=== PATIENT | female | born 1975 ===

== ENCOUNTER → 2018-03-24 12:32 | Outpatient (CLI) | payer OTHER, SELFPAY ==
--- NOTE | 2018-03-24 | DI.MRI.S_ITS ---
PROCEDURE: MR HEAD/BRAIN WO CON INDICATIONS: Headache TECHNIQUE: Noncontrast axial T1 spin echo, axial T2 fast spin echo, sagittal and axial FLAIR, coronal T2 fast spin echo, axial gradient echo, axial diffusion and ADC through the brain. COMPARISON: None. FINDINGS: Image quality: Excellent. CSF Spaces: Basal cisterns are patent. No extra-axial fluid collections. Ventricles are normal in size and shape. Brain: No intracranial masses or hemorrhage. Rogers/white matter interface is normal. Brainstem appears normal. Diffusion-weighted images demonstrate no acute ischemic insult. No chronic ischemic insults. Normal intravascular flow voids are present. Skull and face: Calvarium has normal marrow signal. Orbits appear normal. Sinuses: Small mucous retention cyst versus polyp noted in the right sphenoid sinus. Mild mucosal thickening noted in the right maxillary sinus. The mastoids are clear. IMPRESSION: 1. No intracranial disease process. 2. No abnormal intracranial mass. 3. No abnormal intracranial signal. 4. Mild right maxillary sinus mucosal thickening and small right sphenoid sinus mucous retention cyst versus polyp. Dictated by: Chayo Saenz MD, PhD on 03/26/2018 at 9:38 Approved by: Chayo Saenz MD, PhD on 03/26/2018 at 9:41
== END ==
PROVIDERS: Visit Provider Family Medicine
DX: R51 Headache (principal); J32.0 Chronic maxillary sinusitis
CPT/HCPCS: 70551

== ENCOUNTER → 2020-06-05 13:07 | Outpatient (CLI) | payer BC, SELFPAY ==
[2020-06-05] MEDS: COVID-19 VACC #1, MRNA(MOD) 100 MCG/0.5 ML VIAL IM (13:21)
== END ==
PROVIDERS: Visit Provider Internal Medicine
DX: Z23 Encounter for immunization (principal)
CPT/HCPCS: 0011A; 91301

== ENCOUNTER → 2020-07-01 10:38 | Outpatient (CLI) | payer BC, SELFPAY ==
[2020-07-01] MEDS: COVID-19 VACC #2, MRNA(MOD) 100 MCG/0.5 ML VIAL IM (10:47)
== END ==
PROVIDERS: Visit Provider Internal Medicine
DX: Z23 Encounter for immunization (principal)
CPT/HCPCS: 0012A; 91301

== ENCOUNTER → 2020-12-11 09:44 | Outpatient (CLI) | payer BC, SELFPAY ==
[2020-12-11 21:26] LABS: COVID19 - ORCAS (NP or Nasal) Negative (Negative)
== END ==
PROVIDERS: Visit Provider Family Medicine
DX: Z20.822 Contact with and (suspected) exposure to COVID-19 (principal)
CPT/HCPCS: U0003